=== PATIENT | female | born 2005 | race Two or more races ===

== ENCOUNTER 2024-01-12 16:35 | Emergency (ER) | payer OTHER ==
[~2024-01-12] VITALS: Ht 157.5 cm; Wt 47.6 kg
[~2024-01-12 16:35] MED LIST: LEVSIN/SL0.125 MG SL; PEPCID40 MG PO; PROTONIX40 MG PO
[2024-01-12] MEDS ORDERED: 0.9 % SODIUM CHLORIDE 1,000 ML IV SCH (17:00)
[2024-01-12 17:27] LABS: HEMATOCRIT 36.5 % (36.0-45.00); HEMOGLOBIN 12.3 g/dL (12.0-15.00); MEAN CELL VOLUME 83.2 fL (80.00-100.00); MEAN CORPUSCULAR HEMOGLOBIN 28.1 pg (27.00-32.0); MEAN CORPUSCULAR HGB CONC 33.7 g/dl (32.0-36.0); PLATELET COUNT 288 K/uL (150-450); RED BLOOD COUNT 4.38 M/uL (4.00-6.00); RED CELL DISTRIBUTION WIDTH 14.8 % (11.5-14.5)
[2024-01-12 18:09] LABS: URINE APPEARANCE Clear; URINE BILIRRUBIN Negative (NEGATIVE); URINE BLOOD Negative; URINE COLOR Yellow; URINE GLUCOSE Negative (NEGATIVE); URINE LEUKOCYTE Negative; URINE NITRATE Negative; URINE PROTEIN Negative (NEGATIVE); URINE UROBILINOGEN 0.2 E.U./dl
[2024-01-12 18:12] LABS: URINE BACTERIA 98.2 uL (0.0-1933); URINE EPITHELIAL CELLS 4.4 uL (0.0-38.8); URINE WBC 4.9 uL (0.0-23.2)
[2024-01-12] MEDS ORDERED: KETOROLAC TROMETHAMINE 60 MG VIAL IM STA (19:50)
[2024-01-12] MEDS ORDERED: KETOROLAC TROMETHAMINE 60 MG VIAL IM ONE (19:57)
== END 2024-01-12 20:30 | disposition home or self-care (01) ==
LOC: ER 16:36 → EMR PED 16:41 → ER 16:41 → EMR PED 20:30
DX: R10.9 Unspecified abdominal pain (principal)

== ENCOUNTER 2024-04-05 13:57 | Emergency (ER) | payer OTHER ==
[~2024-04-05] VITALS: Ht 157.5 cm; Wt 46.3 kg
[2024-04-05] MEDS ORDERED: KETOROLAC TROMETHAMINE 60 MG VIAL IM STA (14:24)
[2024-04-05] MEDS ORDERED: ACETAMINOPHEN 500 MG GEL..CAP PO ONE (14:45)
== END 2024-04-05 16:00 | disposition home or self-care (01) ==
LOC: ER 13:57
DX: M94.0 Chondrocostal junction syndrome [Tietze] (principal)

== ENCOUNTER 2024-06-17 11:30 | Emergency (ER) | payer OTHER ==
[~2024-06-17] VITALS: Ht 157.5 cm; Wt 47.6 kg
[2024-06-17] MEDS ORDERED: 0.9 % SODIUM CHLORIDE 500 ML IV ONE (14:30)
[2024-06-17 15:27] LABS: HEMATOCRIT 37.3 % (36.0-45.00); HEMOGLOBIN 12.2 g/dL (12.0-15.00); MEAN CELL VOLUME 84.7 fL (80.00-100.00); MEAN CORPUSCULAR HEMOGLOBIN 27.7 pg (27.00-32.0); MEAN CORPUSCULAR HGB CONC 32.6 g/dl (32.0-36.0); PLATELET COUNT 235 K/uL (150-450); RED CELL DISTRIBUTION WIDTH 14.9 % (11.5-14.5)
[2024-06-17 15:52] LABS: ALBUMIN 3.9 gm/dL (3.4-5.0); BILIRUBIN TOTAL 0.46 mg/dL (0.3-1.2); CALCIUM 9.2 mg/dL (8.5-10.1); CREATININE SERUM 0.54 mg/dL (0.55-1.02); GFR 142.51; GLOBULINA 3.7 G/DL (2.4-3.5); POTASSIUM 3.83 mEq/L (3.5-5.1); TOTAL PROTEIN 7.6 gm/dL (6.4-8.2)
[2024-06-17 16:17] LABS: URINE APPEARANCE Clear; URINE BILIRRUBIN Negative (NEGATIVE); URINE BLOOD Negative; URINE COLOR Yellow; URINE GLUCOSE Negative (NEGATIVE); URINE KETONE Negative (NEGATIVE); URINE LEUKOCYTE Small; URINE NITRATE Negative; URINE PROTEIN Negative (NEGATIVE); URINE UROBILINOGEN 0.2 E.U./dl
[2024-06-17 16:21] LABS: URINE BACTERIA 375.7 uL (0.0-1933); URINE EPITHELIAL CELLS 16.1 uL (0.0-38.8); URINE RBC 8.5 uL (0.0-20.8); URINE WBC 33.7 uL (0.0-23.2)
[2024-06-17] MEDS ORDERED: FLUCONAZOLE150 MG PO (19:54)
== END 2024-06-17 20:39 | disposition home or self-care (01) ==
LOC: ER 11:32
PROVIDERS: Emergency Medicine
DX: B37.9 Candidiasis, unspecified (principal); R10.9 Unspecified abdominal pain
CPT/HCPCS: 36415; 74177; Q9965

== ENCOUNTER 2024-10-19 16:35 | Emergency (ER) | payer OTHER ==
[~2024-10-19] VITALS: Ht 157.5 cm; Wt 46.7 kg
[~2024-10-19 16:35] MED LIST changes: +FLUCONAZOLE150 MG PO
[2024-10-19] MEDS ORDERED: KETOROLAC TROMETHAMINE 60 MG VIAL IM ONE ×2 (19:15→19:25)
[2024-10-19 20:02] LABS: HEMOGLOBIN 12.8 g/dL (12.0-15.00); MEAN CELL VOLUME 85.9 fL (80.00-100.00); MEAN CORPUSCULAR HEMOGLOBIN 28.9 pg (27.00-32.0); MEAN CORPUSCULAR HGB CONC 33.6 g/dl (32.0-36.0); PLATELET COUNT 219 K/uL (150-450); RED BLOOD COUNT 4.42 M/uL (4.00-6.00); RED CELL DISTRIBUTION WIDTH 14.5 % (11.5-14.5)
[2024-10-19 20:33] LABS: COVID-19 AG NEGATIVE (NEGATIVE); INFLUENZA A AG NEGATIVE (NEGATIVE)
[2024-10-19] MEDS ORDERED: PEPCID AC20 MG PO (23:02)
[2024-10-19] MEDS ORDERED: AMOX-CLAV 875-1 EACH PO (23:02)
[2024-10-19] MEDS ORDERED: IBUPROFEN600 MG PO (23:02)
== END 2024-10-19 23:38 | disposition home or self-care (01) ==
LOC: ER 16:35
PROVIDERS: Preventive Medicine Public Health & General Preventive Medicine
DX: H92.01 Otalgia, right ear (principal); J02.9 Acute pharyngitis, unspecified; K58.8 Other irritable bowel syndrome; Z20.822 Contact with and (suspected) exposure to COVID-19

== ENCOUNTER 2025-01-18 13:12 | Outpatient (CLI) | payer OTHER ==
[~2025-01-18 13:12] MED LIST changes: +AMOX-CLAV 875-1 EACH PO; +IBUPROFEN600 MG PO; +PEPCID AC20 MG PO
== END 2025-01-18 13:16 | disposition home or self-care (01) ==
LOC: LAB 13:12
PROVIDERS: ATTEND Anesthesiology
DX: S83.511A Sprain of anterior cruciate ligament of right knee, initial encounter (principal)

== ENCOUNTER 2025-01-22 06:29 | Inpatient (IN) | payer OTHER ==
[2025-01-01 14:38] LABS: BASO % 0.2 % (0.1-1.2); EOS # 0.01 (0.04-0.54); EOS % 0.2 % (0.7-7.0); LYMPH # 1.39 (1.18-3.74); LYMPH % 27.6 % (19.3-53.1); MEAN PLATELET VOLUME 9.30 fl (9.4-12.4); MONO # 0.35 (0.24-0.82); MONO % 6.9 % (4.7-12.5); NEUT # 3.27 (1.56-6.13); NEUT % 64.9 % (34.0-71.1); RED CELL DISTRIBUTION WIDTH 13.7 % (11.6-14.4)
[2025-01-01 14:57] VITALS: BP 92/67
[2025-01-01 15:15] LABS: ALT/SGPT 21.0 U/L (12-78); AST/SGOT 15.0 U/L (15-37); BILIRUBIN TOTAL 0.47 mg/dL (0.3-1.2); BUN CREA RATIO 27.0 (7.0-25.0); CREATININE SERUM 0.59 mg/dL (0.55-1.02); GFR 128.67; GLOBULINA 3.9 G/DL (2.4-3.5); GLUCOSE FASTING 85.0 mg/dL (65-100); OSMOLALITY SERUM 284.0 MOSM/KG (275-295)
[2025-01-01 15:21] LABS: INR 1.05
[2025-01-01 16:10] LABS: URINE APPEARANCE Clear; URINE BILIRRUBIN Negative (NEGATIVE); URINE BLOOD Moderate; URINE COLOR Dark Yellow; URINE GLUCOSE Negative (NEGATIVE); URINE LEUKOCYTE Negative; URINE NITRATE Negative; URINE PROTEIN 30 (NEGATIVE); URINE UROBILINOGEN 0.2 E.U./dl
[2025-01-01 16:11] LABS: URINE BACTERIA 393.5 uL (0.0-1933); URINE EPITHELIAL CELLS 46.4 uL (0.0-38.8); URINE RBC 8.3 uL (0.0-20.8); URINE WBC 24.1 uL (0.0-23.2)
[2025-01-01 16:30] LABS: URINE CAST 0.58 uL (0.0-1.40); URINE KETONE 80 (NEGATIVE); URINE YEAST FEW /hpf
[~2025-01-22] VITALS: Ht 157.5 cm; Wt 45.4 kg
[2025-01-22] MEDS ORDERED: OXYMETAZOLINE HCL 15 ML NASAL DROPS NASAL ONE (10:15)
[2025-01-22] MEDS ORDERED: DEXAMETHASONE SODIUM PHOSPHATE 4 MG/ML VIAL IV ONE (10:15)
[2025-01-22] MEDS ORDERED: MORPHINE SULFATE 4 MG/ML VIAL IV ONE ×2 (11:15→12:00)
[2025-01-22] MEDS ORDERED: TETRACAINE/BENZOCAINE/BUTAMBEN 56 ML BOTTLE TOP ONE (11:30)
[2025-01-22] MEDS ORDERED: ONDANSETRON HCL 2 MG/ML VIAL IV PRN (12:00)
[2025-01-22] MEDS ORDERED: SUGAMMADEX SODIUM 200 MG/2 ML VIAL IV ONE (12:15)
[2025-01-22] MEDS ORDERED: ONDANSETRON HCL 2 MG/ML VIAL IV ONE (12:50)
[2025-01-22] MEDS ORDERED: MORPHINE SULFATE 4 MG/ML VIAL IV SCH (13:00)
[2025-01-22 14:14] VITALS: BP 114/79; O2SAT 100
[2025-01-22 16:00] VITALS: BP 113/76; O2SAT 97
[2025-01-22] MEDS ORDERED: FAMOTIDINE/PF 20 MG/2 ML VIAL IV SCH (21:00)
[2025-01-22] MEDS ORDERED: TRAMADOL HCL 50 MG TABLET PO PRN (22:45)
[2025-01-23 00:26] VITALS: BP 93/64; O2SAT 98
[2025-01-23] MEDS ORDERED: ACETAMINOPHEN 160MG/5 ML BLIST.PACK PO STA (06:48)
[2025-01-23] MEDS ORDERED: MEPERIDINE HCL 25 MG/ML AMPUL IV PRN (07:00)
[2025-01-23 08:00] VITALS: BP 97/62; O2SAT 100
[2025-01-23] MEDS ORDERED: ACETAMINOPHEN 160 MG/5 ML ML PO SCH ×2 (12:00→13:00)
[2025-01-23] MEDS ORDERED: OxyCODONE HCL 5 MG TABLET (ROXICODONE) PO SCH (13:00)
[2025-01-23] MEDS ORDERED: GABAPENTIN 100 MG CAPSULE PO SCH (17:00)
[2025-01-23 17:35] VITALS: BP 100/67; O2SAT 95
[2025-01-23] MEDS ORDERED: MEPERIDINE HCL/PF 25 MG/ML VIAL IV ONE (21:00)
[2025-01-24 00:30] VITALS: BP 110/75; O2SAT 100
[2025-01-24] MEDS ORDERED: DEXAMETHASONE SODIUM PHOSPHATE 4 MG/ML VIAL IV ONE (00:45)
[2025-01-24] MEDS ORDERED: MEPERIDINE HCL/PF 25 MG/ML VIAL IV PRN (01:15)
[2025-01-24] MEDS ORDERED: DIPHENHYDRAMINE HCL 75 MG,LIDOCAINE HCL 30 ML,MAG HYDROX/ALUMINUM HYD/SIMETH 30 ML PO SCH (02:00)
[2025-01-24] MEDS ORDERED: POLYETHYLENE GLYCOL 3350 17 GM BLIST.PACK PO SCH (09:00)
[2025-01-24 09:57] VITALS: BP 99/64; O2SAT 98
[2025-01-24 16:00] VITALS: BP 117/74; O2SAT 99
[2025-01-25 00:55] VITALS: BP 96/63; O2SAT 97
[2025-01-25 09:14] VITALS: BP 102/71; O2SAT 97
[2025-01-25 16:41] VITALS: BP 114/79; O2SAT 99
[2025-01-26 01:43] VITALS: BP 100/71; O2SAT 96
== END 2025-01-26 10:46 | disposition home or self-care (01) | DRG 145 ==
LOC: CIR.AMB 06:29 → SURH 12:32 → O/R 12:32 → SURH 13:08
PROVIDERS: ADMIT Otolaryngology; ATTEND Otolaryngology
PROC: 0CBPXZZ Excision of Tonsils, External Approach (ICD-10-PCS; 2025-01-22)
PROC: 0CTQ0ZZ Resection of Adenoids, Open Approach (ICD-10-PCS; principal; 2025-01-22 07:00)
DX: J35.2 Hypertrophy of adenoids (principal); J35.1 Hypertrophy of tonsils

== ENCOUNTER 2025-01-30 10:08 | Inpatient (IN) | payer OTHER ==
[~2025-01-30] VITALS: Ht 160 cm; Wt 44.5 kg
[2025-01-30] MEDS ORDERED: QDOLO5 MG/1 ML PO (10:48)
[2025-01-30] MEDS ORDERED: PEPCID20 MG PO (10:48)
[2025-01-30] MEDS ORDERED: KETOROLAC TROMETHAMINE 30 MG VIAL IV ONE (11:15)
[2025-01-30] MEDS ORDERED: 0.9 % SODIUM CHLORIDE 500 ML IV ONE (11:15)
[2025-01-30] MEDS ORDERED: ONDANSETRON HCL 2 MG/ML VIAL IV PRN (11:30)
[2025-01-30] MEDS ORDERED: 0.9 % SODIUM CHLORIDE 1,000 ML IV ONE ×2 (11:30→21:45)
[2025-01-30 11:47] LABS: BASO % 0.3 % (0.1-1.2); EOS # 0.02 (0.04-0.54); EOS % 0.3 % (0.7-7.0); LYMPH # 0.84 (1.18-3.74); LYMPH % 13.5 % (19.3-53.1); MEAN PLATELET VOLUME 9.20 fl (9.4-12.4); MONO # 0.57 (0.24-0.82); MONO % 9.2 % (4.7-12.5); NEUT # 4.75 (1.56-6.13); NEUT % 76.4 % (34.0-71.1); RED CELL DISTRIBUTION WIDTH 12.8 % (11.6-14.4)
[2025-01-30 11:57] VITALS: BP 99/70
[2025-01-30] MEDS ORDERED: MEPERIDINE HCL/PF 25 MG/ML VIAL IV SCH (12:00)
[2025-01-30 12:13] LABS: ALT/SGPT 13.0 U/L (12-78); AST/SGOT 11.0 U/L (15-37); BILIRUBIN TOTAL 0.26 mg/dL (0.3-1.2); BUN CREA RATIO 18.0 (7.0-25.0); CREATININE SERUM 0.61 mg/dL (0.55-1.02); GFR 123.81; GLOBULINA 4.6 G/DL (2.4-3.5); GLUCOSE FASTING 91.0 mg/dL (65-100); OSMOLALITY SERUM 280.0 MOSM/KG (275-295)
[2025-01-30 12:15] VITALS: BP 99/70; O2SAT 98
[2025-01-30 12:56] LABS: RH POSITIVE
[2025-01-30 15:27] VITALS: BP 97/69; O2SAT 98
[2025-01-30] MEDS ORDERED: MORPHINE SULFATE 4 MG/ML CARTRIDGE IV PRN (16:15)
[2025-01-30 16:34] VITALS: BP 103/70; O2SAT 98
[2025-01-30] MEDS ORDERED: TRAMADOL HCL 50 MG TABLET PO PRN (16:45)
[2025-01-30] MEDS ORDERED: DIPHENHYDRAMINE HCL 75 MG,LIDOCAINE HCL 30 ML,MAG HYDROX/ALUMINUM HYD/SIMETH 30 ML PO SCH (17:00)
[2025-01-30] MEDS ORDERED: PANTOPRAZOLE SODIUM 40 MG/VIAL VIAL IV PUSH SCH (21:00)
[2025-01-31] MEDS ORDERED: ACETAMINOPHEN 160MG/5 ML BLIST.PACK PO SCH (01:00)
[2025-01-31 01:43] VITALS: BP 100/66
[2025-01-31 09:06] VITALS: BP 100/65; O2SAT 97
[2025-01-31 16:05] VITALS: BP 97/67
[2025-01-31] MEDS ORDERED: ACETAMINOPHEN 160 MG/5 ML ML PO SCH (17:00)
[2025-01-31] MEDS ORDERED: 0.9 % SODIUM CHLORIDE 1,000 ML IV SCH (20:34)
[2025-02-01 00:52] VITALS: BP 91/62; O2SAT 98
[2025-02-01 07:59] VITALS: BP 94/53
== END 2025-02-01 09:50 | disposition home or self-care (01) | DRG 948 ==
LOC: ER 10:08 → SEC-K 12:08 → MEDI 12:08
PROVIDERS: General Practice; ADMIT Otolaryngology; ATTEND Otolaryngology
DX: G89.18 Other acute postprocedural pain (principal); R07.0 Pain in throat; E86.0 Dehydration

== ENCOUNTER 2025-02-18 18:38 | Emergency (ER) | payer OTHER ==
[~2025-02-18] VITALS: Ht 157.5 cm; Wt 44.5 kg
[~2025-02-18 18:38] MED LIST changes: +PEPCID20 MG PO; +QDOLO5 MG/1 ML PO
[2025-02-18] MEDS ORDERED: MINERAL OIL 30 ML BLIST.PACK PO STA (22:28)
[2025-02-18] MEDS ORDERED: LACTULOSE 20 G/30 ML BLIST.PACK PO STA (22:28)
[2025-02-18] MEDS ORDERED: MAGNESIUM HYDROXIDE 400 MG/5 ML ML PO STA (22:29)
== END 2025-02-18 22:45 | disposition home or self-care (01) ==
LOC: ER 18:58
DX: K59.00 Constipation, unspecified (principal); R10.9 Unspecified abdominal pain; Z91.011 Allergy to milk products